=== PATIENT | female | born 1990 | race Caucasian/White ===

== ENCOUNTER 2023-01-04 12:16 | Inpatient (IN) | payer BC ==
[2023-01-04 14:09] LABS: Hematocrit 38.4 % (34.9-44.5); Hemoglobin 13.5 g/dL (12.0-15.5); Mean Corpuscular HGB CONC 35.2 g/dL (32.0-36.0); Mean Corpuscular Hemoglobin 30.8 pg (27.0-33.0); Mean Corpuscular Volume 87.5 fl (81.6-98.3); Mean Platelet Volume 10.4 fl (7.4-10.4); Platelet Count 230 10x3/uL (150-450); RBC Distribution Width 11.8 % (11.5-14.5); Red Blood Cell (RBC) Count 4.39 10x6/uL (3.90-5.03); White Blood Cell (WBC) Count 11.1 10x3/uL (3.5-10.5)
[2023-01-04] MEDS ORDERED: fentaNYL/Ropivacaine Epidural 100 ML ONE (14:12)
[2023-01-04 14:41] LABS: HBSAg Index 0.13 S/CO (0-0.99); Hep B Surf Ag - L&D Non-Reactive S/CO (NonReactive)
[2023-01-04 14:42] LABS: Syphilis Antibody Nonreactive (Nonreactive); Syphilis Antibody Index 0.02 S/CO (<1.00 Non-Reactive)
[2023-01-04] MEDS ORDERED: fentaNYL 50 mcg/mL 1 mL Vial SLOW IVP PRN (14:43)
[2023-01-04] MEDS ORDERED: Acetaminophen 500 MG TAB PO PRN (14:45)
[2023-01-04] MEDS ORDERED: Methylergonovine 0.2 MG/ML VIAL IM PRN (14:45)
[2023-01-04] MEDS ORDERED: Lactated Ringer's 1,000 ML IV SCH ×2 (14:45)
[2023-01-04] MEDS ORDERED: Diphenoxylate HCl/Atropine Tablet PO PRN (14:45)
[2023-01-04] MEDS ORDERED: Promethazine HCl 25 MG/ML VIAL IM PRN (14:45)
[2023-01-04] MEDS ORDERED: Misoprostol 200 MCG TAB RC PRN (14:45)
[2023-01-04] MEDS ORDERED: hydrALAZINE 20 MG/ML VIAL SLOW IVP PRN ×2 (14:45→19:27)
[2023-01-04] MEDS ORDERED: Carboprost 250 MCG/ML AMP IM PRN (14:45)
[2023-01-04] MEDS ORDERED: Ondansetron PF 4 MG/2 ML Vial IVP PRN ×2 (14:45→19:27)
[2023-01-04] MEDS ORDERED: NS w/ Oxytocin 30 units 500 ML IVPB SCH (14:45)
[2023-01-04] MEDS ORDERED: Tranexamic Acid 1,000 MG/10 ML VIAL IVP PRN (14:47)
[2023-01-04 16:31] VITALS: BMI 31.0
[2023-01-04] MEDS ORDERED: Lidocaine 1% (PF) 30 ML VIAL ONE (18:39)
[2023-01-04] MEDS ORDERED: Boostrix 0.5 ML (Tdap) VIAL (>/=7 yrs of age) IM ONE (19:27)
[2023-01-04] MEDS ORDERED: Preparation H Ointment 28 GM TUBE PR PRN (19:27)
[2023-01-04] MEDS ORDERED: Misoprostol 200 MCG TAB VAG PRN (19:27)
[2023-01-04] MEDS ORDERED: HYDROcodone/Acetaminophen 5/325 mg Tablet PO PRN ×2 (19:27)
[2023-01-04] MEDS ORDERED: Benzocaine-Menthol 82.5 ML CAN TOP PRN (19:27)
[2023-01-04] MEDS ORDERED: Milk Of Magnesia 30 ML UDCUP PO PRN (19:27)
[2023-01-04] MEDS ORDERED: Bisacodyl 10 MG SUPP PR PRN (19:27)
[2023-01-04] MEDS ORDERED: Zolpidem Tartrate 5 MG TAB PO PRN (19:27)
[2023-01-04] MEDS ORDERED: Lanolin Ointment 7 GM TUBE TOP PRN (19:27)
[2023-01-04] MEDS ORDERED: diphenhydrAMINE 25 MG CAP PO PRN (19:27)
[2023-01-04] MEDS ORDERED: Witch Hazel-Glycerin 1 EACH JAR TOP PRN (19:29)
[2023-01-04 19:30] LABS: RapidComm Collect By CBN; pH (Cord, venous) 7.308 (7.250-7.350)
[2023-01-04] MEDS ORDERED: NS w/ Oxytocin 30 units 500 ML IV SCH (19:30)
[2023-01-04 19:34] LABS: RapidComm Collect By CBN
[2023-01-04] MEDS: Docusate 100 MG CAP PO SCH (22:42)
[2023-01-04] MEDS: Ibuprofen 800 MG TAB PO SCH (22:42)
[2023-01-05 04:44] LABS: Hematocrit 32.9 % (34.9-44.5); Hemoglobin 11.4 g/dL (12.0-15.5); Mean Corpuscular HGB CONC 34.7 g/dL (32.0-36.0); Mean Corpuscular Hemoglobin 30.7 pg (27.0-33.0); Mean Corpuscular Volume 88.7 fl (81.6-98.3); Platelet Count 198 10x3/uL (150-450); RBC Distribution Width 11.8 % (11.5-14.5); Red Blood Cell (RBC) Count 3.71 10x6/uL (3.90-5.03); White Blood Cell (WBC) Count 12.8 10x3/uL (3.5-10.5)
[2023-01-05] MEDS: Ibuprofen 800 MG TAB PO SCH ×3 (06:02→22:20)
[2023-01-05] MEDS: Prenatal Vitamin 1 TAB PO SCH (09:12)
[2023-01-05] MEDS: Docusate 100 MG CAP PO SCH ×2 (09:12→21:06)
[2023-01-05] MEDS: Ferrous Sulfate 325 MG TAB PO SCH ×2 (09:12→17:05)
[2023-01-06] MEDS: Ibuprofen 800 MG TAB PO SCH (06:11)
[2023-01-06] MEDS: Ferrous Sulfate 325 MG TAB PO SCH (07:52)
[2023-01-06] MEDS: Docusate 100 MG CAP PO SCH (09:36)
[2023-01-06] MEDS: Prenatal Vitamin 1 TAB PO SCH (09:36)
[2023-01-06 10:47] VITALS: BP 119/63; TEMP 97.9
[2023-01-06] MEDS ORDERED: Bupivacaine 0.25% HCL 30 ML VIAL ONE (11:00)
== END 2023-01-06 12:15 | disposition home or self-care (01) | DRG 807 ==
LOC: CSHLD/OP 12:16 → CSHLD 13:22 → CSHPP 22:00
PROVIDERS: ADMIT Obstetrics & Gynecology; ATTEND Obstetrics & Gynecology
PROC: 10D07Z6 Extraction of Products of Conception, Vacuum, Via Natural or Artificial Opening (ICD-10-PCS; principal; 2023-01-04)
PROC: 0W8NXZZ Division of Female Perineum, External Approach (ICD-10-PCS; 2023-01-04)
DX: O76 Abnormality in fetal heart rate and rhythm complicating labor and delivery (principal); Z37.0 Single live birth; Z3A.37 37 weeks gestation of pregnancy
CPT/HCPCS: 36415; 51702; 82805; 85027; 86780; 86850; 86900; 86901; 87340; 99285; J2590; S0020

== ENCOUNTER 2023-03-28 12:54 | Outpatient (CLI) | payer BC ==
[2023-03-28 14:59] LABS: Bilirubin Neg (Negative); Blood, Urine Negative (Negative); Clarity Clear (Clear); Glucose, Urine (Dipstick) Normal (Negative); Ketone, Urine Negative (Negative); Leukocyte Negative (Negative); Nitrite Negative (Negative); Protein, Urine (Dipstick) Negative (Neg-Trace); Urobilinogen Normal mg/dL (Less than 2)
[2023-03-28 15:01] LABS: Hematocrit 40.7 % (34.9-44.5); Hemoglobin 13.4 g/dL (12.0-15.5); Mean Corpuscular HGB CONC 32.9 g/dL (32.0-36.0); Mean Corpuscular Hemoglobin 28.6 pg (27.0-33.0); Mean Corpuscular Volume 86.8 fl (81.6-98.3); Mean Platelet Volume 9.9 fl (7.4-10.4); Platelet Count 261 10x3/uL (150-450); RBC Distribution Width 11.8 % (11.5-14.5); Red Blood Cell (RBC) Count 4.69 10x6/uL (3.90-5.03); White Blood Cell (WBC) Count 6.6 10x3/uL (3.5-10.5)
[2023-03-28 15:16] LABS: BHCG - Serum Negative (NEGATIVE); Pregs Control Background? CLEAR/WHITE (CLR/WHITE); Pregs Control Bar Appear? YES (CONTROL BAR)
[2023-03-28 15:22] LABS: Anion Gap 16 mmol/L (10-20); BUN (Urea Nitrogen) 15 mg/dL (7.0-18.7); Calc. Creatinine Clearance 0 mL/min (70-130); Calcium 9.9 mg/dL (7.8-10.44); Carbon Dioxide 24 mmol/L (22-29); Chloride 106 mmol/L (98-107); Estimated GFR 90; Glucose 88 mg/dL (70-105); Potassium 4.7 mmol/L (3.5-5.1); Sodium 141 mmol/L (136-145)
== END 2023-03-28 12:55 | disposition home or self-care (01) ==
LOC: CSHLAB 12:54
PROVIDERS: ATTEND Obstetrics & Gynecology
DX: Z01.818 Encounter for other preprocedural examination (principal); N82.3 Fistula of vagina to large intestine
CPT/HCPCS: 80048; 81003; 84703; 85027; 93005; 93010

== ENCOUNTER 2023-04-03 05:33 | Day surgery (SDC) | payer BC ==
[2023-03-28 14:00] VITALS: BMI 28.0
[2023-04-03] MEDS ORDERED: Ondansetron PF 4 MG/2 ML Vial ONE ×2 (06:26→08:07)
[2023-04-03] MEDS ORDERED: Rocuronium Bromide 10 MG/ML (10ML VIAL) ONE (06:26)
[2023-04-03] MEDS ORDERED: Dexamethasone 20 MG/5 ML VIAL ONE (06:26)
[2023-04-03] MEDS ORDERED: fentaNYL 50 mcg/mL 1 mL Vial ONE ×2 (06:26→08:05)
[2023-04-03] MEDS ORDERED: Midazolam HCl 2 mg/2 ml Vial ONE (06:26)
[2023-04-03] MEDS ORDERED: PROPOFOL 20 ML ONE (06:26)
[2023-04-03] MEDS ORDERED: Ketorolac Tromethamine 30 MG/ML VIAL ONE (06:26)
[2023-04-03] MEDS ORDERED: Bupivacaine 0.25% HCL 30 ML VIAL ONE (06:27)
[2023-04-03] MEDS ORDERED: SUGAMMADEX SODIUM 200 MG/2 ML VIAL ONE (06:30)
[2023-04-03] MEDS ORDERED: CEFAZOLIN 2 GM VIAL ONE (06:46)
[2023-04-03] MEDS ORDERED: EPINEPHrine 1 MG/ML VIAL ONE (07:56)
[2023-04-03] MEDS ORDERED: Neomycin-Polymyxin 1 ML AMP FS SCH (08:00)
[2023-04-03] MEDS ORDERED: Meperidine HCl/PF 25 MG/ML VIAL ONE (08:40)
[2023-04-03] MEDS ORDERED: Mupirocin 2% Ointment 22 GM Tube ONE (08:44)
== END 2023-04-03 12:45 | disposition home or self-care (01) ==
LOC: CSHSDC 05:33
PROVIDERS: ATTEND Obstetrics & Gynecology
PROC: 0UQG0ZZ Repair Vagina, Open Approach (ICD-10-PCS; principal; 2023-04-03)
DX: N82.3 Fistula of vagina to large intestine (principal); R15.9 Full incontinence of feces; T19.2XXA Foreign body in vulva and vagina, initial encounter
CPT/HCPCS: 88304; C1713; J0171; J1100; J1885; J2175; J2250; J2405; J2704; J3010; S0020